=== PATIENT | male | born 1970 ===

== ENCOUNTER 2017-02-10 16:43 | Inpatient (IN) ==
--- OUTSIDE RECORDS SUMMARY | 2017-02-10 18:29 | External Medical Summary ---
:1970 Author Organization [facility] Address [address] [place], [place] [id number] Care Team Providers Name Role Phone GAGANDEEP GOODE Primary Care Physician Unavailable Allergies and Adverse Reactions Name Reaction Notes morphine TETRACYCLINES Terramycin Plan of Treatment Not available. Medications Active Name Start Date Estimated Completion SIG Comments Date metformin 500 mg oral take 1 tablet by tablet oral route daily ranitidine HCl 150 mg take 1 capsule oral capsule (150 mg) by oral route once daily at bedtime levothyroxine 200 mcg take 1 tablet (200 oral tablet mcg) by oral route once daily enalapril maleate 10 mg take 1 tablet (10 oral tablet mg) by oral route once daily citalopram 20 mg oral take 1.5 tablets tablet by oral route daily Problem List Not available. Vital Signs Date Time BP-Sys(mm[Hg] BP-Izzy(mm[Hg]) HR(bpm) RR(rpm) Temp WT HT HC BMI BSA BMI O2 Percentile Sat(%) 07/13 3:08: 110 mmHg 80 mmHg 85 bpm 18 rpm 98.3 299 73 39.4 2.64 96 % /2015 00 PM F lbs in 5 m2 kg/m 2 Social History Name Description Comments Tobacco chew use 1 can/day Alcohol Use Uses seatbelts Exercises regularly History of Procedures Not available. Results Summary Not available. History Of Immunizations Not available. 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 History of Encounters Visit Date Visit Type Provider 07/13/2016 Office visit GAGANDEEP STEVEN
--- OUTSIDE RECORDS SUMMARY | 2017-02-10 18:29 | External Medical Summary | Continuity of Care Document ---
:1970 Demographics Preferred Language Unknown Marital Status Unknown Hindu Affiliation Unknown Race Unknown Ethnic Group Unknown Author Organization [facility] Allergies Medications Problems Procedures Results Encounters ACCT No. Visit Discharge Status Pt. Type Provider Facility Loc./Unit Complaint Date/Time [id number] 07/13/2016 [facility], 15:05:18 GAGANDEEP [place]
[2017-02-10 18:32] VITALS: BMI 38.9
[2017-02-10] MEDS ORDERED: ACETAMINOPHEN 500 MG TABLET PO PRN (19:12)
[2017-02-10] MEDS ORDERED: NITROGLYCERIN 0.4 MG SUBLINGUAL TABLET SL PRN (19:13)
[2017-02-10] MEDS ORDERED: ONDANSETRON 4 MG/2 ML INJECTION IVP PRN (19:19)
[2017-02-10] MEDS ORDERED: NS 100 ML ONE (19:51)
[2017-02-10] MEDS ORDERED: IOHEXOL 350mg/ml 75ml INJECTION ONE (19:51)
[2017-02-10] MEDS ORDERED: SALINE FLUSH 10ml SYRINGE ONE (19:52)
[2017-02-11] MEDS ORDERED: METFORMIN 500 MG TABLET PO SCH (08:00)
--- NOTE | 2017-02-11 08:13 | CT Scan Report ---
Indication: Chest pain, evaluate for pe PROCEDURE: CT angio pulm emboli: Encounter: Initial Comparison: None Technique: Axial CT pulmonary angiographic phase images were performed through the chest after the administration of intravenous contrast. Coronal and Sagittal MIP reconstructed images were created and reviewed. Automated Exposure Control and Iterative Reconstruction dose reducing techniques were utilized. Contrast: Omnipaque 350 74 mL Findings: Pulmonary arteries: Exam is diagnostic to the subsegmental pulmonary arterial level. No filling defects identified to suggest a pulmonary embolus. Other findings: Several pulmonary nodules are present. Groundglass nodule in the medial right upper lobe on image #9 measuring 7 mm in size. Additional right upper lobe on image #18 measuring 10 mm. Left upper lobe nodule on image #14 measuring 11 mm in diameter. Several additional subpleural nodules in the left lower lobe. No consolidative pneumonia. No pleural effusion or pneumothorax. No axillary or mediastinal lymphadenopathy. Heart size is normal. No pericardial effusion. The upper abdomen shows no acute findings. Impression: 1. No pulmonary embolus. 2. Multiple bilateral pulmonary nodules raising suspicion for metastatic disease. Recommend correlation with the patient's cancer history. Further evaluation with CT of the abdomen and pelvis or PET/CT may be helpful to evaluate for evidence of a primary malignancy, unless there are old comparison studies showing more than two years of stability of these nodules. There is a preliminary report by [employer]. .
[2017-02-11] MEDS: CITALOPRAM 20 MG TABLET PO SCH (08:25)
[2017-02-11] MEDS: LEVOTHYROXINE 200 MCG TABLET PO SCH (08:26)
--- NOTE | 2017-02-11 10:00 | Cardiology History & Physical ---
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 He took his cattle back to the ranch and had a branch coordinator drive him to the nearest ED. He reports sternal chest pain that he describes as a tightness and sharp pain in his left wrist and numbness and tingling in the left arm. He recalls feeling short of air and very sick to his stomach as well. He denies dizziness or near syncope, although he reports recent illness last Wednesday when he had nausea, vomiting and severe weakness. He reports diarrhea is his usual bowel habit and often with blood in the stool as well. He reports a bowel perforation 1 year ago and no follow up until recently. He saw his PCP on 01/20/17 and is scheduled to see a DrIlia About having a colonoscopy. He has a known history of HTN and DM, type II which he believes is well controlled. He had a stress test and heart cath about 15 years ago which were both normal. He states his cholesterol has never been high and is not on a cholesterol lowering agent at this time. He uses smoke-less tobacco and is chewing while I am at the bedside. Review of Systems - Constitutional Constitutional: Present: weakness (last Staurday). Absent: chills, fever(s) - EENMT Eyes: Absent: change in vision Balance: Absent: vertigo Mouth/Throat: Present: sore throat ("this morning from the air conditioning") - Cardiovascular Cardiovascular: Present: chest pain. Absent: palpitations, syncope, orthopnea, heart murmur Vascular: Absent: pedal edema - Respiratory Respiratory: Present: dyspnea. Absent: cough, hemoptysis, chest congestion - Gastrointestinal Gastrointestinal: Present: diarrhea (usual bowel habit), hematochezia (frequent) , nausea (Wednesday), vomiting (Wednesday). Absent: abdominal pain - Genitourinary Genitourinary: Absent: dysuria - Neurological Neurological: Present: weakness. 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) Does patient use chewing tobacco?: Yes Medications Home Medications Medication Instructions Recorded Confirmed Type Citalopram [Celexa] 1.5 tab PO DAILY 02/10/17 02/10/17 History Enalapril 10 mg PO DAILY 02/10/17 02/10/17 History Levothyroxine Sodium 200 mcg PO DAILY 02/10/17 02/10/17 History Metformin [Glucophage] 500 mg PO DAILY 02/10/17 02/10/17 History Ranitidine [Zantac] 150 mg PO DAILY 02/10/17 02/10/17 History Allergies Allergy/AdvReac Type Severity Reaction Status Date / Time morphine AdvReac Tachycardia Verified 02/10/17 19:20 Exam Vital signs: Temp Pulse Resp BP Pulse Ox 97.4 F 70 18 112/74 97 02/11/17 08:03 02/11/17 08:03 02/11/17 08:03 02/11/17 08:03 02/11/17 08:03 - Constitutional no acute distress, obese, cooperative - Routine HEENT Exam ENT: Present: mucous membranes moist - Routine Neck Exam Absent: JVD, carotid bruit - Routine Chest/Breast/Axilla Exam Chest wall: Absent: tenderness - Routine Respiratory Exam Present: CTA bilaterally. Absent: rales, wheezes - Routine Cardiovascular Exam Present: RRR. Absent: JVD - Routine Abdominal Exam Present: soft, normoactive bowel sounds - Routine Extremities Exam Present: no edema - Routine Skin Exam Present: intact - Routine Neurological Exam Present: alert, oriented X3 - Routine Psychiatric Exam Present: normal affect, normal thought process Results 02/11/17 02:13 02/11/17 02:13 Cardiac Enzymes 02/10/17 02/10/17 02/11/17 Range/Units 18:38 22:50 02:13 Troponin I < 0.012 < 0.012 < 0.012 (0-0.12) ng/ml CBC 02/11/17 Range/Units 02:13 WBC 6.4 (4.5-11.0) T/MM3 RBC 4.18 L (4.50-5.90) M/MM3 Hgb 13.7 (13.5-17.5) GM/DL Hct 40.3 L (41-53) % Plt Count 222 (130-400) T/MM3 Neut # Not performed Lymph # Not performed Rhea # Not performed Baso # Not performed Comprehensive Metabolic Panel 02/11/17 Range/Units 02:13 Sodium 140 (134-144) MEQ/L Potassium 3.8 (3.6-5) MEQ/L Chloride 105 (98-107) MEQ/L Carbon Dioxide 25 (22-30) MEQ/L BUN 14.0 (9-20) MG/DL Creatinine 0.8 (0.8-1.5) MG/DL Glucose 184 H (75-110) MG/DL Calcium 9.2 (8.4-10.2) MG/DL Intake and Output 02/10/17 02/11/17 02/11/17 22:59 06:59 14:59 Intake Total 990 / 990 Balance 990 / 990 Intake: Oral 990 / 990 Other: # Voids 1 1 # Bowel Movements 1 Weight 294 lb 12.128 oz 297 lb 13.512 oz Patient Weight 02/12/17 06:59 Weight 297 lb 13.512 oz Laboratory Results - last 24 hr 02/10/17 02/10/17 02/10/17 18:38 18:38 22:50 WBC RBC Hgb Hct MCV MCH MCHC RDW Std Deviation Plt Count MPV Immature Gran % (Auto) Neut % (Auto) Lymph % (Auto) Rhea % (Auto) Eos % (Auto) Baso % (Auto) Neut # Lymph # Rhea # Baso # Abs Immat Gran (auto) Neutrophils % (Manual) Band Neutrophils % Lymphocytes % (Manual) Eosinophils % (Manual) Neutrophils # (Manual) Band Neutrophils # Lymphocytes # (Manual) Eosinophils # (Manual) RBC Morph Comment Turbidity Sodium Potassium Chloride Carbon Dioxide Anion Gap BUN Creatinine GFR Calculation BUN/Creatinine Ratio Glucose Glucometer Hemoglobin A1c 8.4 H Calculated Osmolality Calcium Magnesium 1.8 Icterus Index Troponin I < 0.012 < 0.012 TSH 3.13 Specimen Hemolysis < 15 < 15 Urine Opiates Screen Ur Oxycodone Screen Urine Methadone Screen Ur Propoxyphene Screen Ur Barbiturates Screen U Tricyclic Antidepress Ur Phencyclidine Scrn Ur Amphetamines Screen U Methamphetamines Scrn U Benzodiazepines Scrn Urine Cocaine Screen U Cannabinoids Screen 02/10/17 02/10/17 02/11/17 22:52 23:07 02:13 WBC RBC Hgb Hct MCV MCH MCHC RDW Std Deviation Plt Count MPV Immature Gran % (Auto) Neut % (Auto) Lymph % (Auto) Rhea % (Auto) Eos % (Auto) Baso % (Auto) Neut # Lymph # Rhea # Baso # Abs Immat Gran (auto) Neutrophils % (Manual) Band Neutrophils % Lymphocytes % (Manual) Eosinophils % (Manual) Neutrophils # (Manual) Band Neutrophils # Lymphocytes # (Manual) Eosinophils # (Manual) RBC Morph Comment Turbidity Sodium Potassium Chloride Carbon Dioxide Anion Gap BUN Creatinine GFR Calculation BUN/Creatinine Ratio Glucose Glucometer 250 Hemoglobin A1c Calculated Osmolality Calcium Magnesium Icterus Index Troponin I < 0.012 TSH Specimen Hemolysis < 15 Urine Opiates Screen Negative Ur Oxycodone Screen Negative Urine Methadone Screen Negative Ur Propoxyphene Screen Negative Ur Barbiturates Screen Negative U Tricyclic Antidepress Negative Ur Phencyclidine Scrn Negative Ur Amphetamines Screen Negative U Methamphetamines Scrn Negative U Benzodiazepines Scrn Negative Urine Cocaine Screen Negative U Cannabinoids Screen Negative 02/11/17 02/11/17 02/11/17 02:13 02:13 06:15 WBC 6.4 RBC 4.18 L Hgb 13.7 Hct 40.3 L MCV 96.4 MCH 32.8 MCHC 34.0 RDW Std Deviation 41.2 Plt Count 222 MPV 9.2 L Immature Gran % (Auto) Not performed Neut % (Auto) Not performed Lymph % (Auto) Not performed Rhea % (Auto) Not performed Eos % (Auto) Not performed Baso % (Auto) Not performed Neut # Not performed Lymph # Not performed Rhea # Not performed Baso # Not performed Abs Immat Gran (auto) Not performed Neutrophils % (Manual) 50.0 Band Neutrophils % 4.0 Lymphocytes % (Manual) 39.0 Eosinophils % (Manual) 7.0 H Neutrophils # (Manual) 3.2 Band Neutrophils # 0.3 Lymphocytes # (Manual) 2.5 Eosinophils # (Manual) 0.4 RBC Morph Comment Normal Turbidity < 20 Sodium 140 Potassium 3.8 Chloride 105 Carbon Dioxide 25 Anion Gap 10 BUN 14.0 Creatinine 0.8 GFR Calculation 103 BUN/Creatinine Ratio 18 Glucose 184 H Glucometer 159 Hemoglobin A1c Calculated Osmolality 275 Calcium 9.2 Magnesium Icterus Index < 2 Troponin I TSH Specimen Hemolysis < 15 Urine Opiates Screen Ur Oxycodone Screen Urine Methadone Screen Ur Propoxyphene Screen Ur Barbiturates Screen U Tricyclic Antidepress Ur Phencyclidine Scrn Ur Amphetamines Screen U Methamphetamines Scrn U Benzodiazepines Scrn Urine Cocaine Screen U Cannabinoids Screen - Imaging and Cardiology Echo: pending EKG results: image reviewed - EKG Interpretation EKG: sinus rhythm EKG interpretations - Dysrhythmias Sinus rhythms and dysrhythmias: sinus rhythm Hospital Course Hospital course: Mr. Garvey is a 46 year old male Assessment and Plan (1) Precordial chest pain Current visit: Yes Status: Acute Described as tightness in chest, occurred at rest with radiation into left arm, SOA and nausea whis are concerning symptoms. Serial troponin levels negative and EKG without ischemic changes. Patient was given options and explained risks and benefits of heart cath. Plan to proceed with left heart cath later today (2) Essential (primary) hypertension Current visit: Yes Status: Chronic takes Enalapril 10mg, PCP manages (3) Type 2 diabetes mellitus without complications Current visit: Yes Status: Chronic takes Metformin, PCP manages (4) Hematochezia Current visit: Yes Status: Chronic Has appointment for colonoscopy. Sepsis Assessment - Evaluation Sepsis screening result: No Definite Risk
[2017-02-11] MEDS: ASPIRIN *EC* 81 MG TABLET PO SCH (10:58)
--- NOTE | 2017-02-11 13:36 | Echocardiogram ---
DATE OF PROCEDURE February 11, 2017 This is a two-dimensional echo with spectral Doppler, color-flow and M-mode. It was obtained in a patient with chest pain. Left atrial dimension is normal. Left ventricle end-diastolic dimension is normal. Left ventricle wall thickness is normal. LV systolic function is normal with ejection fraction of about 64%. Right atrium is normal. Right ventricle is normal. Aortic root dimension is normal. Mitral, aortic, tricuspid, pulmonary valves are morphologically normal with trace of tricuspid regurgitation with normal estimated pulmonary artery systolic pressure of 22. Pulmonary valve shows no pulmonary insufficiency. There is no pericardial effusion. IMPRESSION Essentially normal echo with trivial tricuspid regurgitation. MTDD
[2017-02-11] MEDS: NS 1,000 ML IV SCH (14:08)
[2017-02-11] MEDS ORDERED: FentaNYL 100 MCG/2 ML INJECTION ONE (14:46)
[2017-02-11] MEDS ORDERED: MIDAZOLAM 2mg/2ml INJECTION ONE (14:46)
[2017-02-11] MEDS ORDERED: NITROGLYCERIN 50MG INJECTION IV ONE (14:47)
[2017-02-11] MEDS ORDERED: HEPARIN 1,000unit/ml INJECTION 10ml ONE (14:47)
[2017-02-11] MEDS ORDERED: Verapamil 5 MG/2 ML VIAL ONE (14:47)
[2017-02-11] MEDS ORDERED: HEPARIN 1,000 UNITS/500 ML PREMIX (*CVL ONLY*) IV ONE (14:48)
[2017-02-11] MEDS ORDERED: IOHEXOL 350mg/ml 200ml BOTTLE ONE (14:48)
[2017-02-11] MEDS ORDERED: LIDOCAINE 1% (10mg/ml) 30ml SDV INJ ONE (14:48)
[2017-02-11] MEDS ORDERED: INSULIN ASPART 100unit/ml INJECTION SQ PRN (15:01)
--- NOTE | 2017-02-11 15:07 | Consult Note ---
<Rubina Landrum V - Last Filed: 02/11/17 15:03> Consult Information - Data of Consult Patient: new to practice Consult date: 02/11/17 Requesting Physician: Anurag Aldrich MD Primary Care Provider: [place], [place] - Consult Narrative Reason for consult: pulmonary nodules History of present illness: Patient is a 46-year-old male who resides in [facility]. 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 He reported chest pain was sternal, radiating down the left arm all the way to his wrist. He also reported. The night before waking up with chest pain and feeling dizzy and nauseated. He was admitted under cardiology care for further cardiac evaluation and treatment. Basic laboratory studies were obtained. WBC count 6.4, hemoglobin 13.7, hematocrit 40.3, platelet count 222. Sodium is 140, potassium 3.8, BUN 14, creatinine 0.8. Patient is a known diabetic and hemoglobin A1c was elevated at 8.4. Magnesium 1.8, TSH 3.13. Serial troponins 3 were undetectable. A urine drug screen was obtained that was also negative. Echocardiogram revealed EF of 64% overall unremarkable. CT scan of the chest was obtained to rule out pulmonary emboli. This was negative for PE, however, did indicate multiple bilateral pulmonary nodules, raising suspicion for metastatic disease. She is scheduled for a cardiac catheterization this afternoon with under the care of Dr. Aldrich. Due to these concerning findings of pulmonary nodules. The hospitalist services were consulted for medical evaluation. Review of Systems - Constitutional Constitutional: Present: weakness (last Staurday). Absent: chills, fever(s) - EENMT Eyes: Absent: change in vision Balance: Absent: vertigo Mouth/Throat: Present: sore throat ("this morning from the air conditioning") - Cardiovascular Cardiovascular: Present: chest pain. Absent: palpitations, syncope, orthopnea, heart murmur Vascular: Absent: pedal edema - Respiratory Respiratory: Present: dyspnea. Absent: cough, hemoptysis, chest congestion - Gastrointestinal Gastrointestinal: Present: diarrhea (usual bowel habit), hematochezia (frequent) , nausea (Wednesday), vomiting (Wednesday). Absent: abdominal pain - Genitourinary Genitourinary: Absent: dysuria - Neurological Neurological: Present: weakness. Absent: dizziness - Psychiatric Psychiatric: Present: anxiety PFSH Patient Stated Medical History Migraine Yes Angina Yes Cardiac Arrhythmia Yes Heart Murmur Yes Hypertension Yes Myocardial Infarction Yes: "92-3" Pneumonia Yes Diabetes Mellitus Type 2 Yes Gastroesophageal Reflux Yes Disease Tobacco dependence Surgical History: Cholecystectomy- 2010. Right Knee- 1988. 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 [facility] Medications Home Medications Medication Instructions Recorded Confirmed Type Citalopram [Celexa] 1.5 tab PO DAILY 02/10/17 02/10/17 History Enalapril 10 mg PO DAILY 02/10/17 02/10/17 History Levothyroxine Sodium 200 mcg PO DAILY 02/10/17 02/10/17 History Metformin [Glucophage] 500 mg PO DAILY 02/10/17 02/10/17 History Ranitidine [Zantac] 150 mg PO DAILY 02/10/17 02/10/17 History Allergies Allergy/AdvReac Type Severity Reaction Status Date / Time morphine AdvReac Tachycardia Verified 02/10/17 19:20 Exam Vital Signs: Temp Pulse Resp BP Pulse Ox 97.4 F 70 18 112/74 97 02/11/17 08:03 02/11/17 08:03 02/11/17 08:03 02/11/17 08:03 02/11/17 08:03 Height: 1.85 m Weight: 135.1 kg Body Mass Index: 38.9 - Constitutional Present: no acute distress, obese - Routine HEENT Exam Head: Present: normocephalic, atraumatic Eye: Present: EOMI, PERRL - Routine Neck Exam Present: full ROM - Routine Respiratory Exam Present: CTA bilaterally - Routine Cardiovascular Exam Present: RRR, S1, S2 - Routine Abdominal Exam Present: soft, normoactive bowel sounds - Routine Extremities Exam Present: full ROM - Routine Back/Spine/Pelvis Exam Back/Spine: Present: full ROM - Routine Skin Exam Present: intact, warm - Routine Neurological Exam Present: alert, oriented X3, CN II-XII intact - Routine Psychiatric Exam Present: normal affect, normal thought process Results - Labs CBC & Chem 7: 02/11/17 02:13 02/11/17 02:13 Assessment and Plan (1) Pulmonary nodules Current visit: Yes Status: Acute (2) Precordial chest pain Current visit: Yes Status: Chronic (3) Hematochezia Current visit: Yes Status: Acute (4) Essential (primary) hypertension Current visit: Yes Status: Chronic (5) Type 2 diabetes mellitus without complications Current visit: Yes Status: Chronic (6) Hx of myocardial infarction Current visit: Yes Status: Resolved (7) Hx of migraines Current visit: Yes Status: Chronic (8) Obesity Current visit: Yes Status: Chronic (9) Tobacco chew use Current visit: Yes Status: Chronic (10) GERD (gastroesophageal reflux disease) Current visit: Yes Status: Chronic DVT Prophylaxis: SCD's Assessment and Plan: Cardiac care and orders as per Dr. Aldrich. Patient is planning for cardiac catheterization this afternoon. We will wait and see what this shows. Did speak with Dr. Potter, radiologist regarding further imaging options. Also spoke with radiology staff. PET scan is not available. Must use extreme caution given. Patient has received IV contrast last evening as well as more contrast today. During cardiac catheterization. At this point, we will obtain a CT of the abdomen and pelvis without contrast. Early tomorrow morning for further evaluation of carcinoma. Will also obtain an MRI of the brain with and without contrast to rule out metastatic disease. Placed metformin on hold given he has received IV dye. Will monitor Accu-Cheks carefully initiate sliding scale insulin. Will recheck CBC and CMP tomorrow morning to follow blood counts, renal function and electrolytes. 35 minutes was spent talking with patient and , consultation with case management, cardiology provider, radiologist to discuss orders and plan of care. Hospital Course Summary Disclaimer: The visit summary below is not to be considered part of the above Progress Note. Hospital Course: 02/11/17 15:37 Cardiac care and orders as per Dr. Aldrich. Patient is planning for cardiac catheterization this afternoon. We will wait and see what this shows. Did speak with Dr. Potter, radiologist regarding further imaging options. Also spoke with radiology staff. PET scan is not available. Must use extreme caution given. Patient has received IV contrast last evening as well as more contrast today. During cardiac catheterization. At this point, we will obtain a CT of the abdomen and pelvis without contrast. Early tomorrow morning for further evaluation of carcinoma. Will also obtain an MRI of the brain with and without contrast to rule out metastatic disease. Placed metformin on hold given he has received IV dye. Will monitor Accu-Cheks carefully initiate sliding scale insulin. Will recheck CBC and CMP tomorrow morning to follow blood counts, renal function and electrolytes. 35 minutes was spent talking with patient and , consultation with case management, cardiology provider, radiologist to discuss orders and plan of care. Sepsis Assessment - Evaluation Sepsis screening result: No Definite Risk <Edson Sy - Last Filed: 02/11/17 16:49> Consult Information - Data of Consult Requesting Physician: Anurag Aldrich MD [facility] Patient Stated Medical History Migraine Yes Angina Yes Cardiac Arrhythmia Yes Heart Murmur Yes Hypertension Yes Myocardial Infarction Yes: "92-3" Pneumonia Yes Diabetes Mellitus Type 2 Yes Gastroesophageal Reflux Yes Disease Exam Vital Signs: Temp Pulse Resp BP Pulse Ox 97.4 F 69 16 122/72 93 02/11/17 08:03 02/11/17 16:30 02/11/17 16:30 02/11/17 16:30 02/11/17 16:30 Height: 6 ft 1 in Weight: 135.1 kg Results - Labs CBC & Chem 7: 02/11/17 02:13 02/11/17 02:13 Assessment and Plan (1) Precordial chest pain Current visit: Yes Status: Chronic (2) Essential (primary) hypertension Current visit: Yes Status: Chronic (3) Type 2 diabetes mellitus without complications Current visit: Yes Status: Chronic (4) Hematochezia Current visit: Yes Status: Acute (5) Obesity Current visit: Yes Status: Chronic (6) Pulmonary nodules Current visit: Yes Status: Acute (7) Hx of migraines Current visit: Yes Status: Chronic (8) Hx of myocardial infarction Current visit: Yes Status: Resolved (9) Tobacco chew use Current visit: Yes Status: Chronic (10) GERD (gastroesophageal reflux disease) Current visit: Yes Status: Chronic Assessment and Plan: Pt was seen and examined with Rubina. We were called due to the incidental finding of multiple pulmonary nodules. 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 Pt also gives a history of diarrhea that has been worsening for 2 years, sometimes associated with flushing but not with wheezing. His current symptoms seem to be related to his heart (presents with typical angina). On physical exam pt is obese. Head exam - no mass is seen Eyes - no anisocoria, no eyelid droop Neck - no lymphadenopathy - neck is short and thick. Chest - Fair air entry Abdomen - exam is limited due to obesity Ext - No edema Lymph node survey - negative. Plan As above first is to proceed with cardiac cath, if the anatomy allows for PCI then he will remain here. Pt must have a MRI of the brain prior to D/C to R/O mets as he is planning to go back to his job soon. 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 With such a wide spread thoracic process brain mets would be likely and not finding any could suggest that this may not be neoplastic. Still, multiple pulmonary nodules are mots likely due to malignancy - with diarrhea - carcinoid syndrome is a possibility. 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 - exposure to dusts) If no lesions are seen in the brain or in the abdomen, pt would need further workup for his lung nodules including possibly a PET scan and if positive a biopsy. Also he could need GI evaluation for his chronic diarrhea, including scopes, and investigation for infections (parasitic, HIV) Hospital Course Summary Disclaimer: The visit summary below is not to be considered part of the above Progress Note.
[2017-02-11] MEDS ORDERED: MAG-AL + SIM ORAL LIQUID 30ml PO PRN (15:38)
[2017-02-11] MEDS ORDERED: Bisacodyl EC TAB 5 MG TABLET PO PRN (15:38)
[2017-02-11] MEDS ORDERED: ONDANSETRON 4 MG/2 ML INJECTION IVP PRN (15:38)
[2017-02-11] MEDS ORDERED: ATROPINE 1 MG/ML INJECTION IVP PRN (15:38)
[2017-02-11] MEDS ORDERED: LORazepam 0.5 MG TABLET PO PRN (15:38)
[2017-02-11] MEDS ORDERED: BISACODYL 10 MG SUPPOSITORY RECTALLY PRN (15:38)
[2017-02-11] MEDS ORDERED: PROMETHAZINE 25 MG INJECTION IVP PRN (15:38)
[2017-02-11] MEDS ORDERED: ACETAMINOPHEN 325 MG TABLET PO PRN (15:38)
[2017-02-11] MEDS ORDERED: METOCLOPRAMIDE 10mg/2ml INJECTION IVP PRN (15:38)
[2017-02-11] MEDS ORDERED: NITROGLYCERIN 0.4 MG SUBLINGUAL TABLET SL PRN (15:38)
[2017-02-11] MEDS ORDERED: LABETALOL 100mg/20ml INJECTION IVP ONE (20:55)
[2017-02-11] MEDS ORDERED: RANITIDINE 150 MG TABLET PO SCH (22:00)
[2017-02-12] MEDS: NS 1,000 ML IV SCH (03:49)
[2017-02-12] MEDS: LEVOTHYROXINE 200 MCG TABLET PO SCH (05:57)
[2017-02-12 07:27] VITALS: TEMP 97.9; O2SAT 97
[2017-02-12] MEDS: ASPIRIN *EC* 81 MG TABLET PO SCH (08:52)
[2017-02-12] MEDS: CITALOPRAM 20 MG TABLET PO SCH (08:52)
--- NOTE | 2017-02-12 08:58 | Cardiac Catheterization Report ---
DATE OF PROCEDURE February 11, 2017 INDICATIONS The patient is a 46-year-old gentleman with history of diabetes and tobacco abuse who was admitted with symptoms of unstable angina and was referred for further evaluation by cardiac catheterization and possible intervention. INFORMED CONSENT Informed consent was obtained after explaining the procedure and the potential risks to the patient who agreed to proceed with the procedure. PROCEDURE 1. Left heart catheterization. 2. Coronary angiography. 3. Left ventriculography. TECHNIQUE He was prepped and draped in the usual sterile techniques. Conscious sedation was performed using Versed and fentanyl. 1% lidocaine was used for local anesthesia. Using modified Seldinger technique, arterial access was obtained into the right radial artery with placement of a 6-Greek arterial sheath. 3000 units of heparin, 300 mcg of nitroglycerin, and 2.5 mg of verapamil were given through the arterial sheath. LEFT VENTRICULOGRAPHY Left ventriculography in single-plane FALK shallow projection showed normal LV systolic function with ejection fraction of about 65% with no mitral regurgitation or gradient across the aortic valve. LVEDP was about 20. CORONARY ANGIOGRAPHY Left main, left anterior descending and diagonals, left circumflex and marginals , and right coronary artery were all free of significant lesions with left dominant system. The patient tolerated the procedure well with no complications. IMPRESSION 1. No significant coronary obstructive disease. 2. Normal LV systolic function with ejection fraction of about 65%. PLAN Medical management. The patient may require noncardiac chest pain workup as per primary care physician. RONAN
--- NOTE | 2017-02-12 10:32 | Progress Note ---
<Rubina Landrum V - Last Filed: 02/12/17 10:27> Subjective: Andrez is seen this morning in follow up. He complains of feeling tired. He underwent heart cath last evening by Dr Aldrich. Cath was over all unremarkable. He does complain of some left chest pressure however denies having pain or shortness of breath. Tele is NSR without changes. Objective Vital signs: Temp Pulse Resp BP Pulse Ox 97.9 F 78 20 124/77 97 02/12/17 07:25 02/12/17 08:00 02/12/17 07:25 02/12/17 07:25 02/12/17 07:25 Rhythm: Normal Sinus Rhythm Body Mass Index: 38.9 - Constitutional Present: no acute distress, obese - Routine HEENT Exam Eye: Present: EOMI, PERRL - Routine Respiratory Exam Present: CTA bilaterally - Routine Cardiovascular Exam Present: RRR, S1, S2, no murmur - Routine Abdominal Exam Present: soft, normoactive bowel sounds - Routine Extremities Exam Present: full ROM - Routine Back/Spine/Pelvis Exam Back/Spine: Present: full ROM - Routine Skin Exam Present: intact, warm - Routine Neurological Exam Present: alert, oriented X3, CN II-XII intact Results - Labs CBC & Chem 7: 02/12/17 04:47 02/12/17 04:47 Assessment and Plan (1) Pulmonary nodules Current visit: Yes Status: Acute (2) Precordial chest pain Current visit: Yes Status: Chronic (3) Hematochezia Current visit: Yes Status: Acute (4) Essential (primary) hypertension Current visit: Yes Status: Chronic (5) Type 2 diabetes mellitus without complications Current visit: Yes Status: Chronic (6) Hx of myocardial infarction Current visit: Yes Status: Resolved (7) Hx of migraines Current visit: Yes Status: Chronic (8) Obesity Current visit: Yes Status: Chronic (9) Tobacco chew use Current visit: Yes Status: Chronic (10) GERD (gastroesophageal reflux disease) Current visit: Yes Status: Chronic Assessment and Plan: 02/12/17 Heart cath was negative for coronary artery disease with EF of 65% Further work up of pulmonary nodules. Will obtain MRI brain as well as CT abdomen and pelvis this morning to evaluate for any suspicious malignancies. Continue to hold metformin given the patient has received contrast over the last 2 days. Monitor Accu-Cheks and utilize sliding scale insulin as needed. Following imaging will be able to develop plan of care [place] Will re-evaluate later today and discuss with attending, Dr Sy Sepsis Assessment - Evaluation Sepsis screening result: No Definite Risk Hospital Course Summary Disclaimer: The visit summary below is not to be considered part of the above Progress Note. Hospital Course: 02/11/17 15:37 Cardiac care and orders as per Dr. Aldrich. Patient is planning for cardiac catheterization this afternoon. We will wait and see what this shows. Did speak with Dr. Potter, radiologist regarding further imaging options. Also spoke with radiology staff. PET scan is not available. Must use extreme caution given. Patient has received IV contrast last evening as well as more contrast today. During cardiac catheterization. At this point, we will obtain a CT of the abdomen and pelvis without contrast. Early tomorrow morning for further evaluation of carcinoma. Will also obtain an MRI of the brain with and without contrast to rule out metastatic disease. Placed metformin on hold given he has received IV dye. Will monitor Accu-Cheks carefully initiate sliding scale insulin. Will recheck CBC and CMP tomorrow morning to follow blood counts, renal function and electrolytes. 35 minutes was spent talking with patient and , consultation with case management, cardiology provider, radiologist to discuss orders and plan of care. Dr Sy- As above first is to proceed with cardiac cath, if the anatomy allows for PCI then he will remain here. Pt must have a MRI of the brain prior to D/C to R/O mets as he is planning to go back to his job soon. 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 With such a wide spread thoracic process brain mets would be likely and not finding any could suggest that this may not be neoplastic. Still, multiple pulmonary nodules are mots likely due to malignancy - with diarrhea - carcinoid syndrome is a possibility. 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 - exposure to dusts) If no lesions are seen in the brain or in the abdomen, pt would need further workup for his lung nodules including possibly a PET scan and if positive a biopsy. Also he could need GI evaluation for his chronic diarrhea, including scopes, and investigation for infections (parasitic, HIV) 02/12/17 Heart cath was negative for coronary artery disease with EF of 65% Further work up of pulmonary nodules. Will obtain MRI brain as well as CT abdomen and pelvis this morning to evaluate for any suspicious malignancies. Continue to hold metformin given the patient has received contrast over the last 2 days. Monitor Accu-Cheks and utilize sliding scale insulin as needed. Following imaging will be able to develop plan of care [place]. Will re-evaluate later today and discuss with attending, Dr Sy <Edson Sy - Last Filed: 02/12/17 10:59> Objective Vital signs: Temp Pulse Resp BP Pulse Ox 97.9 F 78 20 124/77 97 02/12/17 07:25 02/12/17 08:00 02/12/17 07:25 02/12/17 07:25 02/12/17 07:25 Results - Labs CBC & Chem 7: 02/12/17 04:47 02/12/17 04:47 Assessment and Plan (1) Precordial chest pain Current visit: Yes Status: Chronic (2) Essential (primary) hypertension Current visit: Yes Status: Chronic (3) Type 2 diabetes mellitus without complications Current visit: Yes Status: Chronic (4) Hematochezia Current visit: Yes Status: Acute (5) Obesity Current visit: Yes Status: Chronic (6) Pulmonary nodules Current visit: Yes Status: Acute (7) Hx of migraines Current visit: Yes Status: Chronic (8) Hx of myocardial infarction Current visit: Yes Status: Resolved (9) Tobacco chew use Current visit: Yes Status: Chronic (10) GERD (gastroesophageal reflux disease) Current visit: Yes Status: Chronic Assessment and Plan: Pt was seen and examined independently by me this AM. Cardiac cath was negative for any lesion that could explain his symptoms. PT will have brain MRI today and CT abdomen and pelvis with no contrast today. If no brain lesions are seen and no abdominal lesions pt can go home to resume workup next week at [facility] (His hospital of choice). On PE this AM Pt is obese Neck short thick Chest clear, RRR Abdomen soft NT/ND. Ext - trace edema Neuro - non focal. Plan 1) ? Metastatic lung disease ? - Await brain MRI and abd/pelvis CT. Hospital Course Summary Disclaimer: The visit summary below is not to be considered part of the above Progress Note.
[2017-02-12] MEDS ORDERED: GADOBUTROL 10mMol/10ml INJECTION IVP ONE (11:19)
[2017-02-12] MEDS ORDERED: SALINE FLUSH 10ml SYRINGE ONE (11:19)
[2017-02-12 12:44] VITALS: BP 119/84; PULSE 74; RESP 37
--- NOTE | 2017-02-12 13:32 | CT Scan Report ---
Indication: diarrhea, R/O malignancy PROCEDURE: CT abdomen pelvis wo con: Encounter: Initial Comparison: CT angiogram of the chest dated February 10, 2017 Technique: Axial CT images were performed through the abdomen and pelvis without intravenous contrast. Coronal and sagittal two-dimensional reformats. Automated Exposure Control and Iterative Reconstruction dose reducing techniques were utilized. Findings: Left lower lobe pulmonary nodule described on prior chest CT. The unenhanced contours of the liver show borderline fatty infiltration without contour deforming mass or obvious bile duct dilatation. The gallbladder is surgically absent. The spleen, and adrenal glands are within normal limits. The left kidney shows a small 2 mm nonobstructing lower pole stone. Right kidney is unremarkable. No abdominal or pelvic lymphadenopathy by CT criteria. Bladder shows some residual contrast material within it. No free fluid. No evidence of a bowel obstruction. Small and large bowel are not well evaluated without contrast. The appendix is normal. Bone windows show mild degenerative change in the spine but no focal lytic or blastic osseous lesions. Impression: No acute disease process seen in the abdomen or pelvis. No evidence for a primary malignancy. .
--- NOTE | 2017-02-12 13:37 | Magnetic Resonance Report ---
Indication: Pulmonary abnormalities concerning for metastatic disease. Please evaluate for Brain Mets PROCEDURE: MR head/brain wo/w con: Encounter: Initial Comparisons: None Technique: Multiplanar, multisequence, MR imaging of the head with and without contrast was acquired. Contrast: 10 mL of Gadavist FINDINGS: Motion artifact. The ventricles are of normal size, shape, and contour for the patient's age. The brain stem, cerebellum, and cerebral hemispheres have a grossly normal morphologic appearance as well as MR signal intensity on all pulse sequences. Following intravenous administration of contrast, no areas of abnormal enhancement are evident. There are no areas of restricted diffusion to suggest an acute infarct. There is no gross evidence of an intracranial mass lesion, intracranial hemorrhage, or hydrocephalus. Small mastoid effusions. Mild mucosal thickening in the paranasal sinuses. IMPRESSION: Limited exam due to motion artifact. No acute intracranial abnormality or obvious metastatic disease. .
--- NOTE | 2017-02-12 14:07 | Discharge Summary ---
<Jen Melendez - Last Filed: 02/12/17 14:19> Discharge Information Date of admission: 02/12/17 12:58 Anticipated date of discharge: 02/12/17 Attending Physician: Anurag Aldrich MD Consults: 02/10/17 23:12 Dietary Consult [CONS] Routine Comment: Reason For Exam: 02/11/17 13:25 Physician Consult [CONS] Routine Consulting Provider: Edson Sy Reason For Exam: pulmonary nodules Ordering Provider has Notified Occupational Safety And Health Manager: Yes - Discharge Diagnosis (1) Precordial chest pain Problem Details: Underwent left heart cath without intervention. No coronary obstructive disease Status: Acute (2) Essential (primary) hypertension Status: Chronic (3) Type 2 diabetes mellitus without complications Status: Chronic (4) Hematochezia Status: Acute - Procedures Procedures: Date of Exam: 02/11/17 Type of Exam(s): CA heart cath LT DATE OF PROCEDURE February 11, 2017 INDICATIONS The patient is a 46-year-old gentleman with history of diabetes and tobacco abuse who was admitted with symptoms of unstable angina and was referred for further evaluation by cardiac catheterization and possible intervention. INFORMED CONSENT Informed consent was obtained after explaining the procedure and the potential risks to the patient who agreed to proceed with the procedure. PROCEDURE 1. Left heart catheterization. 2. Coronary angiography. 3. Left ventriculography. TECHNIQUE He was prepped and draped in the usual sterile techniques. Conscious sedation was performed using Versed and fentanyl. 1% lidocaine was used for local anesthesia. Using modified Seldinger technique, arterial access was obtained into the right radial artery with placement of a 6-Maldivian arterial sheath. 3000 units of heparin, 300 mcg of nitroglycerin, and 2.5 mg of verapamil were given through the arterial sheath. LEFT VENTRICULOGRAPHY Left ventriculography in single-plane FALK shallow projection showed normal LV systolic function with ejection fraction of about 65% with no mitral regurgitation or gradient across the aortic valve. LVEDP was about 20. CORONARY ANGIOGRAPHY Left main, left anterior descending and diagonals, left circumflex and marginals , and right coronary artery were all free of significant lesions with left dominant system. The patient tolerated the procedure well with no complications. IMPRESSION 1. No significant coronary obstructive disease. 2. Normal LV systolic function with ejection fraction of about 65%. PLAN Medical management. The patient may require noncardiac chest pain workup as per primary care physician. - Laboratory Labs: 02/12/17 04:47 02/12/17 04:47 - Radiology Radiology: Date of Exam: 02/10/17 Ordering Provider: Viki Spear APRN Type of Exam(s): CT angio pulm emboli Reason for Exam(s): rule out pe Indication: Chest pain, evaluate for pe PROCEDURE: CT angio pulm emboli: Encounter: Initial Comparison: None Technique: Axial CT pulmonary angiographic phase images were performed through the chest after the administration of intravenous contrast. Coronal and Sagittal MIP reconstructed images were created and reviewed. Automated Exposure Control and Iterative Reconstruction dose reducing techniques were utilized. Contrast: Omnipaque 350 74 mL Findings: Pulmonary arteries: Exam is diagnostic to the subsegmental pulmonary arterial level. No filling defects identified to suggest a pulmonary embolus. Other findings: Several pulmonary nodules are present. Groundglass nodule in the medial right upper lobe on image #9 measuring 7 mm in size. Additional right upper lobe on image #18 measuring 10 mm. Left upper lobe nodule on image #14 measuring 11 mm in diameter. Several additional subpleural nodules in the left lower lobe. No consolidative pneumonia. No pleural effusion or pneumothorax. No axillary or mediastinal lymphadenopathy. Heart size is normal. No pericardial effusion. The upper abdomen shows no acute findings. Impression: 1. No pulmonary embolus. 2. Multiple bilateral pulmonary nodules raising suspicion for metastatic disease. Recommend correlation with the patient's cancer history. Further evaluation with CT of the abdomen and pelvis or PET/CT may be helpful to evaluate for evidence of a primary malignancy, unless there are old comparison studies showing more than two years of stability of these nodules. There is a preliminary report by [employer]. Date of Exam: 02/12/17 Ordering Provider: Rubina Landrum APRN Type of Exam(s): CT abdomen pelvis wo con Reason for Exam(s): diarrhea, R/O malignancy Indication: diarrhea, R/O malignancy PROCEDURE: CT abdomen pelvis wo con: Encounter: Initial Comparison: CT angiogram of the chest dated February 10, 2017 Technique: Axial CT images were performed through the abdomen and pelvis without intravenous contrast. Coronal and sagittal two-dimensional reformats. Automated Exposure Control and Iterative Reconstruction dose reducing techniques were utilized. Findings: Left lower lobe pulmonary nodule described on prior chest CT. The unenhanced contours of the liver show borderline fatty infiltration without contour deforming mass or obvious bile duct dilatation. The gallbladder is surgically absent. The spleen, and adrenal glands are within normal limits. The left kidney shows a small 2 mm nonobstructing lower pole stone. Right kidney is unremarkable. No abdominal or pelvic lymphadenopathy by CT criteria. Bladder shows some residual contrast material within it. No free fluid. No evidence of a bowel obstruction. Small and large bowel are not well evaluated without contrast. The appendix is normal. Bone windows show mild degenerative change in the spine but no focal lytic or blastic osseous lesions. Impression: No acute disease process seen in the abdomen or pelvis. No evidence for a primary malignancy. Date of Exam: 02/12/17 Ordering Provider: Rubina Landrum APRN Type of Exam(s): MR head/brain wo/w con Reason for Exam(s): R/O Brain Mets Indication: Pulmonary abnormalities concerning for metastatic disease. Please evaluate for Brain Mets PROCEDURE: MR head/brain wo/w con: Encounter: Initial Comparisons: None Technique: Multiplanar, multisequence, MR imaging of the head with and without contrast was acquired. Contrast: 10 mL of Gadavist FINDINGS: Motion artifact. The ventricles are of normal size, shape, and contour for the patient's age. The brain stem, cerebellum, and cerebral hemispheres have a grossly normal morphologic appearance as well as MR signal intensity on all pulse sequences. Following intravenous administration of contrast, no areas of abnormal enhancement are evident. There are no areas of restricted diffusion to suggest an acute infarct. There is no gross evidence of an intracranial mass lesion, intracranial hemorrhage, or hydrocephalus. Small mastoid effusions. Mild mucosal thickening in the paranasal sinuses. IMPRESSION: Limited exam due to motion artifact. No acute intracranial abnormality or obvious metastatic disease. 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 He took his cattle back to the ranch and had a feed handler drive him to the nearest ED. He reports sternal chest pain that he describes as a tightness and sharp pain in his left wrist and numbness and tingling in the left arm. He recalls feeling short of air and very sick to his stomach as well. He denies dizziness or near syncope, although he reports recent illness last Wednesday when he had nausea, vomiting and severe weakness. He reports diarrhea is his usual bowel habit and often with blood in the stool as well. He reports a bowel perforation 1 year ago and no follow up until recently. He saw his PCP on 01/20/17 and is scheduled to see a DrIlia About having a colonoscopy. He has a known history of HTN and DM, type II which he believes is well controlled. He had a stress test and heart cath about 15 years ago which were both normal. He states his cholesterol has never been high and is not on a cholesterol lowering agent at this time. He uses smoke-less tobacco and is chewing while I am at the bedside. Hospital Course Hospital course: 02/11/17 15:37 Cardiac care and orders as per Dr. Aldrich. Patient is planning for cardiac catheterization this afternoon. We will wait and see what this shows. Did speak with Dr. Potter, radiologist regarding further imaging options. Also spoke with radiology staff. PET scan is not available. Must use extreme caution given. Patient has received IV contrast last evening as well as more contrast today. During cardiac catheterization. At this point, we will obtain a CT of the abdomen and pelvis without contrast. Early tomorrow morning for further evaluation of carcinoma. Will also obtain an MRI of the brain with and without contrast to rule out metastatic disease. Placed metformin on hold given he has received IV dye. Will monitor Accu-Cheks carefully initiate sliding scale insulin. Will recheck CBC and CMP tomorrow morning to follow blood counts, renal function and electrolytes. 35 minutes was spent talking with patient and , consultation with case management, cardiology provider, radiologist to discuss orders and plan of care. Dr yS- As above first is to proceed with cardiac cath, if the anatomy allows for PCI then he will remain here. Pt must have a MRI of the brain prior to D/C to R/O mets as he is planning to go back to his job soon. 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 With such a wide spread thoracic process brain mets would be likely and not finding any could suggest that this may not be neoplastic. Still, multiple pulmonary nodules are mots likely due to malignancy - with diarrhea - carcinoid syndrome is a possibility. 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 - exposure to dusts) If no lesions are seen in the brain or in the abdomen, pt would need further workup for his lung nodules including possibly a PET scan and if positive a biopsy. Also he could need GI evaluation for his chronic diarrhea, including scopes, and investigation for infections (parasitic, HIV) 02/12/17 Heart cath was negative for coronary artery disease with EF of 65% Further work up of pulmonary nodules. Will obtain MRI brain as well as CT abdomen and pelvis this morning to evaluate for any suspicious malignancies. Continue to hold metformin given the patient has received contrast over the last 2 days. Monitor Accu-Cheks and utilize sliding scale insulin as needed. Following imaging will be able to develop plan of care [place]. Will re-evaluate later today and discuss with attending, Dr Sy 02/12/17 MRI of Brain and CT abd both negative for masses. Images will be burnt to a disc and given to the patient to take to home state and PCP. Exam Vital signs: Temp Pulse Resp BP Pulse Ox 97.9 F 74 37 H 119/84 97 02/12/17 07:25 02/12/17 12:42 02/12/17 12:42 02/12/17 12:39 02/12/17 07:25 - Constitutional no acute distress, obese, cooperative - Routine HEENT Exam ENT: Present: mucous membranes moist - Routine Neck Exam Absent: JVD, carotid bruit - Routine Chest/Breast/Axilla Exam Chest wall: Absent: tenderness - Routine Respiratory Exam Present: CTA bilaterally. Absent: rales, wheezes - Routine Cardiovascular Exam Present: RRR, no murmur - Routine Abdominal Exam Present: soft, normoactive bowel sounds - Routine Skin Exam Present: intact - Routine Neurological Exam Present: alert - Routine Psychiatric Exam Present: normal affect, normal thought process Results 02/12/17 04:47 02/12/17 04:47 Cardiac Enzymes 02/12/17 Range/Units 04:47 AST 21 (17-59) U/L CBC 02/12/17 Range/Units 04:47 WBC 6.7 (4.5-11.0) T/MM3 RBC 4.16 L (4.50-5.90) M/MM3 Hgb 13.6 (13.5-17.5) GM/DL Hct 40.3 L (41-53) % Plt Count 240 (130-400) T/MM3 Neut # Not performed Lymph # Not performed Nuckolls # Not performed Baso # Not performed Comprehensive Metabolic Panel 02/12/17 Range/Units 04:47 Sodium 141 (134-144) MEQ/L Potassium 4.0 (3.6-5) MEQ/L Chloride 105 (98-107) MEQ/L Carbon Dioxide 25 (22-30) MEQ/L BUN 13.0 (9-20) MG/DL Creatinine 0.8 (0.8-1.5) MG/DL Glucose 132 H (75-110) MG/DL Calcium 8.9 (8.4-10.2) MG/DL AST 21 (17-59) U/L ALT 44 (21-72) U/L Alkaline Phosphatase 61 (38-126) U/L Total Protein 6.3 (6.3-8.2) G/DL Albumin 3.5 (3.5-5.0) G/DL Intake and Output 02/11/17 02/12/17 02/12/17 22:59 06:59 14:59 Intake Total 1117.5 / 1117.5 1410 / 1410 670 / 670 Output Total 1150 / 1150 1025 / 1025 Balance -32.5 / -32.5 385 / 385 670 / 670 Intake: IV 537.5 / 537.5 410 / 410 670 / 670 Normal Saline 1,000 ml @ 537.5 / 537.5 410 / 410 670 / 670 75 mls/hr IV .[id number] [facility] Rx#:[id number] Oral 580 / 580 1000 / 1000 Output: Urine 1150 / 1150 1025 / 1025 Other: # Voids 2 Laboratory Results - last 48 hr 02/10/17 02/10/17 02/10/17 18:38 18:38 22:50 WBC RBC Hgb Hct MCV MCH MCHC RDW Std Deviation Plt Count MPV Immature Gran % (Auto) Neut % (Auto) Lymph % (Auto) N[place]olls % (Auto) Eos % (Auto) Baso % (Auto) Neut # Lymph # [place]oll[place] # Baso # Abs Immat Gran (auto) Neutrophils % (Manual) Band Neutrophils % Lymphocytes % (Manual) Monocytes % (Manual) Eosinophils % (Manual) Neutrophils # (Manual) Band Neutrophils # Lymphocytes # (Manual) Monocytes # (Manual) Eosinophils # (Manual) RBC Morph Comment Turbidity Sodium Potassium Chloride Carbon Dioxide Anion Gap BUN Creatinine GFR Calculation BUN/Creatinine Ratio Glucose Glucometer Hemoglobin A1c 8.4 H Calculated Osmolality Calcium Magnesium 1.8 Total Bilirubin Icterus Index AST ALT Alkaline Phosphatase Troponin I < 0.012 < 0.012 Total Protein Albumin Globulin Albumin/Globulin Ratio TSH 3.13 Specimen Hemolysis < 15 < 15 Urine Opiates Screen Ur Oxycodone Screen Urine Methadone Screen Ur Propoxyphene Screen Ur Barbiturates Screen U Tricyclic Antidepress Ur Phencyclidine Scrn Ur Amphetamines Screen U Methamphetamines Scrn U Benzodiazepines Scrn Urine Cocaine Screen U Cannabinoids Screen 02/10/17 02/10/17 02/11/17 22:52 23:07 02:13 WBC RBC Hgb Hct MCV MCH MCHC RDW Std Deviation Plt Count MPV Immature Gran % (Auto) Neut % (Auto) Lymph % (Auto) N[place]olls % (Auto) Eos % (Auto) Baso % (Auto) Neut # Lymph # [place]oll[place] # Baso # Abs Immat Gran (auto) Neutrophils % (Manual) Band Neutrophils % Lymphocytes % (Manual) Monocytes % (Manual) Eosinophils % (Manual) Neutrophils # (Manual) Band Neutrophils # Lymphocytes # (Manual) Monocytes # (Manual) Eosinophils # (Manual) RBC Morph Comment Turbidity Sodium Potassium Chloride Carbon Dioxide Anion Gap BUN Creatinine GFR Calculation BUN/Creatinine Ratio Glucose Glucometer 250 Hemoglobin A1c Calculated Osmolality Calcium Magnesium Total Bilirubin Icterus Index AST ALT Alkaline Phosphatase Troponin I < 0.012 Total Protein Albumin Globulin Albumin/Globulin Ratio TSH Specimen Hemolysis < 15 Urine Opiates Screen Negative Ur Oxycodone Screen Negative Urine Methadone Screen Negative Ur Propoxyphene Screen Negative Ur Barbiturates Screen Negative U Tricyclic Antidepress Negative Ur Phencyclidine Scrn Negative Ur Amphetamines Screen Negative U Methamphetamines Scrn Negative U Benzodiazepines Scrn Negative Urine Cocaine Screen Negative U Cannabinoids Screen Negative 02/11/17 02/11/17 02/11/17 02:13 02:13 06:15 WBC 6.4 RBC 4.18 L Hgb 13.7 Hct 40.3 L MCV 96.4 MCH 32.8 MCHC 34.0 RDW Std Deviation 41.2 Plt Count 222 MPV 9.2 L Immature Gran % (Auto) Not performed Neut % (Auto) Not performed Lymph % (Auto) Not performed [place]olls % (Auto) Not performed Eos % (Auto) Not performed Baso % (Auto) Not performed Neut # Not performed Lymph # Not performed [place]olls # Not performed Baso # Not performed Abs Immat Gran (auto) Not performed Neutrophils % (Manual) 50.0 Band Neutrophils % 4.0 Lymphocytes % (Manual) 39.0 Monocytes % (Manual) Eosinophils % (Manual) 7.0 H Neutrophils # (Manual) 3.2 Band Neutrophils # 0.3 Lymphocytes # (Manual) 2.5 Monocytes # (Manual) Eosinophils # (Manual) 0.4 RBC Morph Comment Normal Turbidity < 20 Sodium 140 Potassium 3.8 Chloride 105 Carbon Dioxide 25 Anion Gap 10 BUN 14.0 Creatinine 0.8 GFR Calculation 103 BUN/Creatinine Ratio 18 Glucose 184 H Glucometer 159 Hemoglobin A1c Calculated Osmolality 275 Calcium 9.2 Magnesium Total Bilirubin Icterus Index < 2 AST ALT Alkaline Phosphatase Troponin I Total Protein Albumin Globulin Albumin/Globulin Ratio TSH Specimen Hemolysis < 15 Urine Opiates Screen Ur Oxycodone Screen Urine Methadone Screen Ur Propoxyphene Screen Ur Barbiturates Screen U Tricyclic Antidepress Ur Phencyclidine Scrn Ur Amphetamines Screen U Methamphetamines Scrn U Benzodiazepines Scrn Urine Cocaine Screen U Cannabinoids Screen 02/11/17 02/12/17 02/12/17 20:36 04:47 04:47 WBC 6.7 RBC 4.16 L Hgb 13.6 Hct 40.3 L MCV 96.9 MCH 32.7 MCHC 33.7 RDW Std Deviation 41.9 Plt Count 240 MPV 9.5 Immature Gran % (Auto) Not performed Neut % (Auto) Not performed Lymph % (Auto) Not performed [place]olls % (Auto) Not performed Eos % (Auto) Not performed Baso % (Auto) Not performed Neut # Not performed Lymph # Not performed Nuckolls # Not performed Baso # Not performed Abs Immat Gran (auto) Not performed Neutrophils % (Manual) 70.0 H Band Neutrophils % 2.0 Lymphocytes % (Manual) 22.0 L Monocytes % (Manual) 3.0 Eosinophils % (Manual) 3.0 Neutrophils # (Manual) 4.7 Band Neutrophils # 0.1 Lymphocytes # (Manual) 1.5 Monocytes # (Manual) 0.2 Eosinophils # (Manual) 0.2 RBC Morph Comment Normal Turbidity < 20 Sodium 141 Potassium 4.0 Chloride 105 Carbon Dioxide 25 Anion Gap 11 BUN 13.0 Creatinine 0.8 GFR Calculation 103 BUN/Creatinine Ratio 16 Glucose 132 H Glucometer 150 Hemoglobin A1c Calculated Osmolality 273 Calcium 8.9 Magnesium Total Bilirubin 0.50 Icterus Index < 2 AST 21 ALT 44 Alkaline Phosphatase 61 Troponin I Total Protein 6.3 Albumin 3.5 Globulin 2.8 Albumin/Globulin Ratio 1.3 TSH Specimen Hemolysis < 15 Urine Opiates Screen Ur Oxycodone Screen Urine Methadone Screen Ur Propoxyphene Screen Ur Barbiturates Screen U Tricyclic Antidepress Ur Phencyclidine Scrn Ur Amphetamines Screen U Methamphetamines Scrn U Benzodiazepines Scrn Urine Cocaine Screen U Cannabinoids Screen 02/12/17 02/12/17 06:02 13:47 WBC RBC Hgb Hct MCV MCH MCHC RDW Std Deviation Plt Count MPV Immature Gran % (Auto) Neut % (Auto) Lymph % (Auto) Nuckolls % (Auto) Eos % (Auto) Baso % (Auto) Neut # Lymph # [place]oll[place] # Baso # Abs Immat Gran (auto) Neutrophils % (Manual) Band Neutrophils % Lymphocytes % (Manual) Monocytes % (Manual) Eosinophils % (Manual) Neutrophils # (Manual) Band Neutrophils # Lymphocytes # (Manual) Monocytes # (Manual) Eosinophils # (Manual) RBC Morph Comment Turbidity Sodium Potassium Chloride Carbon Dioxide Anion Gap BUN Creatinine GFR Calculation BUN/Creatinine Ratio Glucose Glucometer 138 169 Hemoglobin A1c Calculated Osmolality Calcium Magnesium Total Bilirubin Icterus Index AST ALT Alkaline Phosphatase Troponin I Total Protein Albumin Globulin Albumin/Globulin Ratio TSH Specimen Hemolysis Urine Opiates Screen Ur Oxycodone Screen Urine Methadone Screen Ur Propoxyphene Screen Ur Barbiturates Screen U Tricyclic Antidepress Ur Phencyclidine Scrn Ur Amphetamines Screen U Methamphetamines Scrn U Benzodiazepines Scrn Urine Cocaine Screen U Cannabinoids Screen - Imaging and Cardiology Echo: report reviewed Cardiac cath: report reviewed EKG results: image reviewed Discharge Plan - Med Rec/Dispo [place] Instructions: [facility] Heart Cath Additional Instructions: Follow up TOM[facility]S with your PCP. Take disc with images for scans done at [facility] with you for PCP to review. Hold Metformin until Wednesday due to contrast media given. Drink plenty of fluids to help flush contrast from your kidneys. Prescriptions: Continue Metformin [Glucophage] 500 mg PO DAILY Citalopram [Celexa] 1.5 tab PO DAILY Ranitidine [Zantac] 150 mg PO DAILY Enalapril 10 mg PO DAILY Levothyroxine Sodium 200 mcg PO DAILY - Disposition 01 Discharged Home, Self-Care <Anurag Aldrich - Last Filed: 02/17/17 16:22> Discharge Information Date of admission: 02/12/17 12:58 Attending Physician: Anurag Aldrich MD Consults: 02/10/17 23:12 Dietary Consult [CONS] Routine Comment: Reason For Exam: 02/11/17 13:25 Physician Consult [CONS] Routine Consulting Provider: Edson Sy Reason For Exam: pulmonary nodules Ordering Provider has Notified Occupational Safety And Health Manager: Yes - Discharge Diagnosis (1) Precordial chest pain Problem Details: Underwent left heart cath without intervention. No coronary obstructive disease Status: Acute (2) Essential (primary) hypertension Status: Chronic (3) Type 2 diabetes mellitus without complications Status: Chronic (4) Hematochezia Status: Acute - Laboratory Labs: 02/12/17 04:47 02/12/17 04:47 Hospital Course This is a general summary of the patient's hospital course. For more details refer to the complete medical record. Hospital course: Recommendation After examining the patient I agree with the above assessment. I am involved in the formulation of the patient's plan of care. Exam Vital signs: Temperature 97.9 F 02/12/17 07:25 Pulse Rate 74 02/12/17 12:42 Respiratory Rate 37 H 02/12/17 12:42 Blood Pressure 119/84 02/12/17 12:39 Pulse Oximetry 97 02/12/17 07:25 Oxygen Delivery Method Room Air Results 02/12/17 04:47 02/12/17 04:47
--- NOTE | 2017-02-12 14:23 | Work/School Release ---
Work/School Release - Date Date: 02/12/17 - Work Release Remain off work/school for:: Until released to return to work by PCP Excused for:: recent hospitalization Restrictions:: Limit activity for 2 days. No lifting more than 10 pounds, no pushing or pulling for [address], operate machinery or drink alcohol for 2 days. May resume normal activity on:: 02/18/17
== END 2017-02-12 15:40 | disposition home or self-care (01) | DRG 287 ==
LOC: SRG
PROVIDERS: ADMIT Internal Medicine Cardiovascular Disease; ATTEND Internal Medicine Cardiovascular Disease